=== PATIENT | female | born 1980 | race Caucasian/White ===

== ENCOUNTER 2017-06-04 22:43 | Emergency (ER) | payer OTHER ==
[2017-06-04 22:56] VITALS: BP 110/60; PULSE 74; TEMP 98.7; BMI 33.8
[2017-06-04 23:03] LABS: BASOPHIL 1.1 % (0-2.0); EOSINOPHIL 1.7 % (0-4.5); MCH 29.8 pg (25.7-33.7); MEAN CELL VOLUME 85.3 fl (80-96); MEAN PLT VOLUME 7.7 fl (7.5-11.1); NEUTROPHILS 78.8 % (42.8-82.8); PLATELET COUNT 385 K/MM3 (134-434); RDW 12.1 % (11.6-15.6); WHITE BLOOD COUNT 14.1 K/mm3 (4.0-10.8)
[2017-06-04 23:15] LABS: ALBUMIN 4.7 g/dl (3.5-5.0); ALK PHOS 85 U/L (32-92); ANION GAP 7 (8-16); BILIRUBIN,TOTAL 0.4 mg/dl (0.2-1.0); CALCIUM 9.2 mg/dl (8.4-10.2); CO2 30 mmol/L (22-28); CREATININE 0.9 mg/dl (0.6-1.3); GLUCOSE,RANDOM 90 mg/dl (74-106); SGOT/AST 22 U/L (10-42); SGPT/ALT 30 U/L (10-40); TOT PROT 7.5 g/dl (6.4-8.3)
--- NOTE | 2017-06-04 23:35 | PDOC ---
History of Present Illness - General Chief Complaint: Wound Stated Complaint: FEVER YESTERDAY, RT BREAST PAIN Time Seen by Provider: 06/04/17 22:47 - History of Present Illness Initial Comments: This 36-year-old woman with a history of breast/ovarian carcinoma (in remission ) and asthma presents with right breast pain and fever for the last day. Patient noted some discomfort in her right breast approximately 48 hours ago. Yesterday, pain continued and she noted fever which was progressive throughout the day (Tmax 103.9F). She took Motrin and her chronic pain medication ( oxycodone/acetaminophen) for fever and pain. Today, she has had no fever but pain persists. She has also noted some swelling in the right breast. Patient had mastectomies and breast implants placed in 2013. She has had no previous problems with infection related to the implants. No recent history of trauma to the area. No discharge or bleeding from the healed surgical incision. She has had no wounds/rash of the breasts or chest wall. No history of resistant organism infection or colonization. No previous history of cellulitis/abscess She denies nausea/vomiting/diarrhea, cough/upper respiratory symptoms, abdominal pain Past History - Past Medical History Allergies/Adverse Reactions: Allergies Allergy/AdvReac Type Severity Reaction Status Date / Time No Known Allergies Allergy Verified 07/09/14 15:52 Home Medications: Ambulatory Orders Epinephrine (Epi-Pen 0.3MG) [Epipen 0.3MG -] 0.3 mg IM ASDIR #2 pens 04/28/13 Gabapentin [Neurontin] 800 mg PO QID 07/09/14 Naproxen [Naprosyn -] 500 mg PO TID 07/09/14 Montelukast Na [Singulair -] 10 mg PO HS 06/04/17 Ondansetron HCl [Zofran] 4 mg PO TID PRN 06/04/17 Oxycodone HCl/Acetaminophen [Percocet 5-325 mg Tablet] 1 - 2 tab PO Q6H PRN 08/11 Clindamycin HCl 300 mg PO TID #21 capsule 06/05/17 Asthma: Yes Cancer: Yes (OVARIAN AND BREAST) Other medical history: HYPOTENSION - Surgical History Orthopedic Surgery: Yes (?tibial repair) - Immunization History Immunization Up to Date: Yes - Psycho/Social/Smoking Cessation Hx Anxiety: No Suicidal Ideation: No Smoking Status: No Smoking History: Never smoked Number of Cigarettes Smoked Daily: 0 Hx Alcohol Use: No Substance Use Type: None Review of Systems - Review of Systems Able to Perform ROS?: Yes Comments:: 12 point review of systems is negative except for what is noted in the history of present illness *Physical Exam - Vital Signs Last Vital Signs Temp Pulse Resp BP Pulse Ox 98.7 F 74 18 110/60 100 06/04/17 22:51 06/04/17 22:51 06/04/17 22:51 06/04/17 22:51 06/04/17 22:51 - Physical Exam Comments: GENERAL: Adult female, alert and oriented 3, in no acute distress Vital signs: Temperature 98.4F, heart rate 75/minute, BP 110/ 60, respiratory rate rate 18/minute, pulse ox 100% on room air HEAD: Normal with no signs of trauma. EYES: PERRLA, EOMI, sclera anicteric, conjunctiva clear. ENT: Ears normal, nares patent, oropharynx clear without exudates. Moist mucous membranes. NECK: Normal range of motion, supple without lymphadenopathy, JVD, or masses. CHEST WALL: Right breastfaint erythema/mild edema superior lateral quadrant(8 cm by 4 cm area of erythema) Mild tenderness of the inflamed area without fluctuance or masses Central incision well-healed without erythema/discharge No skin break/rash evident Chest wall exam otherwise normal LUNGS: Breath sounds equal, clear to auscultation bilaterally. No wheezes, and no crackles. HEART:Regular rate and rhythm, normal S1 and S2 without murmur, rub or gallop. ABDOMEN:.normal bowel sounds No guarding,tenderness or rebound.No masses No distention. EXTREMITIES: Normal range of motion, no edema. No clubbing or cyanosis. No erythema, or tenderness. NEUROLOGICAL: Cranial nerves II through XII grossly intact. Normal speech. No focal neurological deficits. MUSCULOSKELETAL: Back non-tender to palpation, no CVA tenderness ED Treatment Course - LABORATORY CBC & Chemistry Diagram: 06/04/17 22:40 06/04/17 22:40 - ADDITIONAL ORDERS Additional order review: Laboratory Results 06/04/17 22:40 Sodium 136 Potassium 4.0 Chloride 99 Carbon Dioxide 30 H Anion Gap 7 L BUN 18 Creatinine 0.9 Creat Clearance w eGFR > 60 Random Glucose 90 Calcium 9.2 Total Bilirubin 0.4 AST 22 ALT 30 Alkaline Phosphatase 85 Total Protein 7.5 Albumin 4.7 06/04/17 22:40 RBC 4.45 MCV 85.3 MCHC 35.0 RDW 12.1 MPV 7.7 Neutrophils % 78.8 Lymphocytes % 15.0 Monocytes % 3.4 L Eosinophils % 1.7 Basophils % 1.1 Medical Decision Making - Medical Decision Making 36-year-old woman with a history of breast/ovarian carcinoma with history of implant in the right breast presents with short history of right breast pain/ edema/erythema and fever. She is currently afebrile but pain persists in the right breast. No previous infectious complications of her breast implants. Exam as noted above CBC/chemistry profile reveals moderate elevation of white blood cell count (14, 400) with neutrophil predominance. No other significant abnormalities on laboratory evaluation except for mild prerenal azotemia. Results discussed with the patient. Because of the presence of foreign body in the setting of mild cellulitis of the right breast, patient will have a dose of IV vancomycin (1 g) here in the ER. Prescription for clindamycin 300 mg 3 times a day for one week sent to her pharmacy The patient was cautioned to monitor the inflammation/infection of the right breast closely. Because of the presence of the implant, she may need to return for IV antibiotic treatment. Patient states that she will be leaving the area for a few days in 48 hours. She has a general doctor that she will follow-up with on Thursday, June 10. She has not seen her plastic surgery doctor (at [facility]) in a few years. She asked for referral to plastic surgeon in the area and Dr. Sanchez's and Dr. Aguilera's referral information given to her. She should plan to follow up with plastic surgery as well as her general doctor within the next week *DC/Admit/Observation/Transfer Diagnosis at time of Disposition: Cellulitis of right breast - Discharge Dispostion Disposition: HOME Condition at time of disposition: Stable - Prescriptions Prescriptions: Clindamycin HCl 300 mg PO TID #21 capsule - Referrals Referrals: Carson Sanchez MD [Staff Physician] - 1 week - Patient Instructions Printed Discharge Instructions: DI for Cellulitis -- Adult Additional Instructions: clindamycin 300mg three times a day for one week Drink plenty of water Return to ER if you have worsening pain/redness/swelling of right breast or persistent fever Follow-up with your general doctor next week as discussed Followup with Plastic surgeon within 1 week
[2017-06-05] MEDS ORDERED: VANCOMYCIN 1,000 MG in DEXTROSE 5%-WATER - 250 ML IVPB ONE (00:23)
[2017-06-05] MEDS ORDERED: VANCOMYCIN 1,000 MG VIAL (RESTRICTED TO ID ONLY) ONE (00:26)
== END 2017-06-05 02:02 | disposition home or self-care (01) ==
LOC: FER 22:43
DX: N61.0 Mastitis without abscess (principal)
CPT/HCPCS: 36415; 80053; 85025; 99282-25

== ENCOUNTER 2019-06-08 09:57 | Emergency (ER) | payer OTHER ==
[2019-06-08 10:06] VITALS: BP 110/74; PULSE 86; TEMP 98.4; BMI 27.4
--- NOTE | 2019-06-08 10:12 | PDOC ---
History of Present Illness - General Chief Complaint: Bite Stated Complaint: DOG BITE Time Seen by Provider: 06/08/19 10:10 - History of Present Illness Initial Comments: 06/08/19 11:19 Chief complaint: Dog bite History of present illness: Patient was bitten by a neighbors dog on the right hand immediately CROSSING TENDER. She was walking her own dogs and was feeding both her dog and a neighbor's dog. She has known the neighbor's dog for quite a while and although the dog is unpredictable, he is known to be healthy. Review of systems: Complains of numbness and tingling of the index finger, and volar aspect of the forearm. Denies limited range of motion or weakness. 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 Bilateral mastectomies and complete hysterectomy. Postmastectomy pain maintained on narcotics. Social/family history reviewed and noncontributory except for the history of multiple cancers of the reproductive tract Physical exam: Alert and oriented well-developed well-nourished mild distress due to pain in the right hand at the site of bites. Cooperative Afebrile, vital signs normal Physical exam is normal except for the right hand, which shows multiple puncture wounds, most notably the volar aspect of the palm at the base of the index finger, the dorsal aspect of the hand over the distal second metacarpal, and the lateral wrist. There are no foreign bodies palpable or visible. There is no bleeding, but there is edema, which is mild. Sensation is intact to all 5 fingertips, although the patient does note some tingling in the index fingertip. Flexor and extensor function is intact against resistance to all 5 digits. Capillary refill is intact to all 5 digits. Pulses are full. Impression: Multiple puncture wounds of the right hand due to dog bite Plan: X-ray, wound care and antibiotics, tetanus update, and close follow-up by hand specialist. Past History - Past Medical History Allergies/Adverse Reactions: Allergies Allergy/AdvReac Type Severity Reaction Status Date / Time bee venom protein (honey bee) Allergy Verified 06/08/19 10:56 BEE Allergy Uncoded 06/08/19 09:58 Home Medications: Ambulatory Orders Gabapentin [Neurontin] 800 mg PO QID 07/09/14 Naproxen [Naprosyn -] 500 mg PO BID 07/09/14 Montelukast Na [Singulair -] 10 mg PO HS 06/04/17 Albuterol Sulfate Inhaler - [Ventolin HFA Inhaler -] 1 - 2 inh PO Q4H 06/08/19 Amox-Tr/K Cl [Augmentin 875-125mg Tablet -] 1 tab PO BID #14 tablet 06/08/19 Budesonide/Formeterol Fumarate [SYMBICORT 160/4.5mcg -] 1 inh PO DAILY 06/08/19 Naloxegol Oxalate [Movantik] 25 mg PO DAILY 06/08/19 Oxycodone HCl/Acetaminophen [Percocet 5-325 mg Tablet] 1 tab PO Q6H 06/08/19 Asthma: Yes Cancer: Yes (OVARIAN AND BREAST) COPD: No Other medical history: OVARIAN CANCER, BREAST CANCER - Surgical History Orthopedic Surgery: Yes (?tibial repair) - Immunization History Immunization Up to Date: Yes - Suicide/Smoking/Psychosocial Hx Smoking Status: No Smoking History: Never smoked Number of Cigarettes Smoked Daily: 0 Hx Alcohol Use: No Drug/Substance Use Hx: No Substance Use Type: None *Physical Exam - Vital Signs Last Vital Signs Temp Pulse Resp BP Pulse Ox 98.4 F 86 18 110/74 100 06/08/19 09:57 06/08/19 09:57 06/08/19 09:57 06/08/19 09:57 06/08/19 09:57 Medical Decision Making - Medical Decision Making 06/08/19 11:24 Wounds were thoroughly scrubbed and dressed with bacitracin. Wrapped with 4 x 4 and Jayashree. Instructions for rest and elevation. Referral to hand specialist for recheck in 2 days, sooner if there is increased pain or other sign of significant infection. Patient understands the potential seriousness of hand infections, which frequently develop after dog bite, and agrees to close follow-up as directed. *DC/Admit/Observation/Transfer Diagnosis at time of Disposition: Dog bite of right hand Qualifiers: Encounter type: initial encounter Qualified Code(s): S61.451A - Open bite of right hand, initial encounter - Discharge Dispostion Disposition: HOME Condition at time of disposition: Stable Decision to Admit order: No - Prescriptions Prescriptions: Amox-Tr/K Cl [Augmentin 875-125mg Tablet -] 1 tab PO BID #14 tablet - Referrals Referrals: Favian Edgar MD [Staff Physician] - 2 Days - Patient Instructions Printed Discharge Instructions: How to Care for a Domestic Animal Bite Additional Instructions: Absolute rest and elevation of the right arm and hand for at least 2 days. Continue antibiotics as directed. See hand specialist in 2 days for further evaluation and treatment. Dog bites of the hand can easily get infected and cause extensive damage if not cared for properly. - Post Discharge Activity
[2019-06-08] MEDS ORDERED: AMOX TR/POT CLAV 875MG/125MG TABLETS (FP) PO ONE (10:26)
[2019-06-08] MEDS ORDERED: DIPHTH,PERTUSS(ACELL),TET 0.5 ML DISP.SYRIN IM ONE ×2 (10:52→10:55)
[2019-06-08] MEDS ORDERED: AMOX TR/POT CLAV 875MG/125MG TABLETS (FP) ONE (10:55)
== END 2019-06-08 11:06 | disposition home or self-care (01) ==
LOC: FER 09:57
PROC: 3E0234Z Introduction of Serum, Toxoid and Vaccine into Muscle, Percutaneous Approach (ICD-10-PCS; principal; 2019-06-08)
DX: S61.451A Open bite of right hand, initial encounter (principal); W54.0XXA Bitten by dog, initial encounter; Y93.89 Activity, other specified; Y92.89 Other specified places as the place of occurrence of the external cause
CPT/HCPCS: 73130-TC-RT-FY; 90715; 99282-25

== ENCOUNTER 2020-10-26 18:25 | Emergency (ER) | payer OTHER ==
[2020-10-26 18:38] VITALS: BP 120/72; TEMP 98.8; BMI 29.2
[2020-10-26] MEDS ORDERED: morphine CARPU-JECT 4 MG/1 ML DISP.SYRIN IVPUSH ONE ×2 (18:41→20:01)
[2020-10-26] MEDS ORDERED: LACTATED RINGERS SOLUTION 1000 ML INFUS.BAG IV ONE (18:44)
[2020-10-26] MEDS ORDERED: morphine SULFATE 4 MG/ML VIAL ONE ×2 (18:52→20:01)
[2020-10-26 19:27] LABS: HEMATOCRIT 37.5 % (32.4-45.2); HEMOGLOBIN 12.6 GM/dl (10.7-15.3); MCH 30.5 pg (25.7-33.7); MCHC 33.6 g/dl (32.0-36.0); MEAN CELL VOLUME 90.7 fl (80-96); MEAN PLT VOLUME 7.4 fl (7.5-11.1); PLATELET COUNT 481 K/MM3 (134-434); RBC 4.14 M/mm3 (3.60-5.2); RDW 11.9 % (11.6-15.6)
[2020-10-26 19:35] LABS: ALBUMIN 4.4 g/dl (3.4-5.0); BILIRUBIN,TOTAL 0.7 mg/dl (0.2-1); CALCIUM 9.1 mg/dl (8.5-10); CREATININE 0.9 mg/dl (0.55-1.3); TOT PROT 6.5 g/dl (6.4-8.2)
[2020-10-26 19:36] LABS: ACTIVATED PTT 30.9 SECONDS (25.2-36.5)
[2020-10-26 19:40] LABS: INR 1.18 (0.82-1.09); PROTHROMBIN TIME (PATIENT) 13.1 SEC (10.2-13.0)
[2020-10-26 20:02] LABS: PLATELET ESTIMATE SLT INCREASE
[2020-10-26] MEDS ORDERED: ONDANSETRON 4 MG/2 ML VIAL IVPB ONE (20:29)
[2020-10-26] MEDS ORDERED: ONDANSETRON 4 MG/2 ML VIAL ONE (20:30)
[2020-10-26 20:45] VITALS: PULSE 64
== END 2020-10-26 21:14 | disposition home or self-care (01) ==
LOC: FER 18:25
DX: N30.00 Acute cystitis without hematuria (principal)
CPT/HCPCS: 36415; 74177-TC; 80053; 81003; 85025; 85610; 85730; 86850; 86900; 86901; 93005; 99283-25; Q9967

== ENCOUNTER → 2023-02-18 | Day surgery (SDC) | payer BC ==
[2023-02-18 10:05] VITALS: BMI 22.6
[2023-02-18 12:21] VITALS: TEMP 97
[2023-02-18 12:45] VITALS: RESP 15
[2023-02-18 13:36] VITALS: BP 103/65; PULSE 61
== END | disposition home or self-care (01) ==
LOC: JASU-ENDO 04:20
PROVIDERS: ATTEND Student in an Organized Health Care Education/Training Program
PROC: 0DB98ZX Excision of Duodenum, Via Natural or Artificial Opening Endoscopic, Diagnostic (ICD-10-PCS; 2023-02-18)
PROC: 0DB78ZX Excision of Stomach, Pylorus, Via Natural or Artificial Opening Endoscopic, Diagnostic (ICD-10-PCS; 2023-02-18)
PROC: 0DB68ZX Excision of Stomach, Via Natural or Artificial Opening Endoscopic, Diagnostic (ICD-10-PCS; 2023-02-18)
PROC: 0DJD8ZZ Inspection of Lower Intestinal Tract, Via Natural or Artificial Opening Endoscopic (ICD-10-PCS; principal; 2023-02-18 10:30)
DX: D64.9 Anemia, unspecified (principal); K29.50 Unspecified chronic gastritis without bleeding
CPT/HCPCS: 88305-TC; 88342-TC

== ENCOUNTER 2023-06-09 15:20 | Emergency (ER) | payer BC ==
[2023-06-09] MEDS ORDERED: SODIUM CHLORIDE 0.9% 500 ML INFUS.BAG IV ONE (15:40)
[2023-06-09] MEDS ORDERED: ONDANSETRON 4 MG/2 ML VIAL IVPUSH ONE (15:40)
[2023-06-09] MEDS ORDERED: morphine CARPU-JECT 4 MG/1 ML DISP.SYRIN IVPUSH ONE (15:40)
[2023-06-09] MEDS ORDERED: FAMOTIDINE 20 MG/50 ML IVPB 20 MG/50 ML MG IVPB ONE ×2 (15:40→16:06)
[2023-06-09] MEDS ORDERED: morphine SULFATE 4 MG/ML VIAL ONE (16:06)
[2023-06-09] MEDS ORDERED: ONDANSETRON 4 MG/2 ML VIAL ONE (16:06)
[2023-06-09 16:15] LABS: HEMATOCRIT 33.1 % (32.4-45.2); HEMOGLOBIN 10.8 G/dL (10.7-15.3); MCH 27.4 pg (25.7-33.7); MCHC 32.7 g/dl (32.0-36.0); MEAN CELL VOLUME 83.5 fl (80-96); MEAN PLT VOLUME 6.6 fl (7.5-11.1); PLATELET COUNT 470.6 10^3/uL (134-434); RBC 3.96 10^6/uL (3.60-5.2); WHITE BLOOD COUNT 9.3 10^3/uL (4.0-10.8)
[2023-06-09 16:18] VITALS: TEMP 97.8; BMI 21.9
[2023-06-09 16:29] LABS: ALBUMIN 3.5 g/dl (3.4-5.0); BILIRUBIN,TOTAL 0.1 mg/dl (0.2-1); BLOOD UREA NITROGEN 12.8 mg/dl (7-18); CALCIUM 8.6 mg/dl (8.5-10.1); CREATININE 0.8 mg/dl (0.6-1.3); POTASSIUM 3.9 mmol/L (3.5-5.1); SGOT/AST 9.7 U/L (15-37); SGPT/ALT 8.5 U/L (7-52); TOT PROT 5.4 g/dl (6.4-8.2)
[2023-06-09] MEDS ORDERED: ACETAMINOPHEN 325 MG TABLET (FP) PO ONE (17:05)
[2023-06-09] MEDS ORDERED: ONDANSETRON *ODT* 4 MG TABLET SL ONE (17:05)
[2023-06-09] MEDS ORDERED: ACETAMINOPHEN 1000 MG/100 ML BAG IVPB ONE (17:14)
[2023-06-09] MEDS ORDERED: ACETAMINOPHEN INJECTION 100 ML IVPB ONE (17:14)
[2023-06-09 17:21] LABS: PLATELET ESTIMATE ADEQUATE
[2023-06-09] MEDS ORDERED: KETOROLAC TROMETHAMINE 30 MG/1 ML VIAL IVPUSH ONE (19:38)
[2023-06-09] MEDS ORDERED: METOCLOPRAMIDE HCL 10 MG TABLET (FP) PO ONE (19:39)
[2023-06-09] MEDS ORDERED: KETOROLAC TROMETHAMINE 30 MG/1 ML VIAL ONE (19:40)
[2023-06-09] MEDS ORDERED: METOCLOPRAMIDE HCL INJECTION 10 MG/2 ML VIAL ONE (19:40)
[2023-06-09] MEDS ORDERED: METOCLOPRAMIDE HCL INJECTION 10 MG/2 ML VIAL IVPUSH ONE (19:52)
[2023-06-09 20:20] VITALS: BP 101/66; PULSE 68; RESP 16
== END 2023-06-09 20:51 | disposition home or self-care (01) ==
LOC: FER 15:20
PROC: 3E033GC Introduction of Other Therapeutic Substance into Peripheral Vein, Percutaneous Approach (ICD-10-PCS; principal; 2023-06-09)
PROC: 3E033GC Introduction of Other Therapeutic Substance into Peripheral Vein, Percutaneous Approach (ICD-10-PCS; 2023-06-09)
PROC: 3E033GC Introduction of Other Therapeutic Substance into Peripheral Vein, Percutaneous Approach (ICD-10-PCS; 2023-06-09)
PROC: 3E033GC Introduction of Other Therapeutic Substance into Peripheral Vein, Percutaneous Approach (ICD-10-PCS; 2023-06-09)
PROC: 3E0333Z Introduction of Anti-inflammatory into Peripheral Vein, Percutaneous Approach (ICD-10-PCS; 2023-06-09)
PROC: 3E033NZ Introduction of Analgesics, Hypnotics, Sedatives into Peripheral Vein, Percutaneous Approach (ICD-10-PCS; 2023-06-09)
DX: R10.12 Left upper quadrant pain (principal); R11.0 Nausea; D75.839 Thrombocytosis, unspecified
CPT/HCPCS: 36415; 74177-TC; 80053; 81003; 83690; 85027; 87086; 99285-25; Q0162; Q9967

== ENCOUNTER 2023-06-15 15:48 | Observation (INO) | payer BC ==
[2023-06-15] MEDS ORDERED: LACTATED RINGERS SOLUTION 1000 ML INFUS.BAG IV ONE ×2 (16:00→17:58)
[2023-06-15] MEDS ORDERED: MAG HYDROX/AL HYDROX/SIMETH -MYLANTA- ORAL SUSPENSION PO ONE (16:00)
[2023-06-15] MEDS ORDERED: SUCRALFATE 1 GM TABLET (FP) PO ONE (16:00)
[2023-06-15] MEDS ORDERED: ONDANSETRON 4 MG/2 ML VIAL IVPUSH ONE (16:00)
[2023-06-15] MEDS ORDERED: ACETAMINOPHEN 1000 MG/100 ML BAG IVPB ONE (16:00)
[2023-06-15] MEDS ORDERED: FAMOTIDINE 20 MG/50 ML IVPB 20 MG/50 ML MG IVPB ONE ×2 (16:00→16:26)
[2023-06-15] MEDS ORDERED: MAG HYDROX/AL HYDROX/SIMETH 30 ML UNIT-DOSE CUP ONE (16:26)
[2023-06-15] MEDS ORDERED: ACETAMINOPHEN INJECTION 100 ML IVPB ONE (16:26)
[2023-06-15] MEDS ORDERED: ONDANSETRON 4 MG/2 ML VIAL ONE (16:26)
[2023-06-15] MEDS ORDERED: SUCRALFATE 1 GM/10 ML UNIT DOSE CUPS ONE (16:27)
[2023-06-15 16:32] LABS: MCH 26.8 pg (25.7-33.7); MCHC 31.6 g/dl (32.0-36.0); MEAN CELL VOLUME 84.8 fl (80-96); MEAN PLT VOLUME 6.5 fl (7.5-11.1); PLATELET COUNT 595.3 10^3/uL (134-434); RBC 4.48 10^6/uL (3.60-5.2); RDW 18.7 % (11.6-15.6)
[2023-06-15 16:43] LABS: ALBUMIN 3.8 g/dl (3.4-5.0); BLOOD UREA NITROGEN 12.2 mg/dl (7-18); CALCIUM 9.3 mg/dl (8.5-10.1); CREATININE 0.7 mg/dl (0.6-1.3); MAGNESIUM 1.9 mg/dL (1.8-2.4); PHOSPHOROUS 4.5 (2.5-4.9); POTASSIUM 3.8 mmol/L (3.5-5.1); SGOT/AST 10.1 U/L (15-37); SGPT/ALT 10.2 U/L (7-52); TOT PROT 5.9 g/dl (6.4-8.2)
[2023-06-15 17:28] LABS: PLATELET ESTIMATE SLT INCREASE
[2023-06-15] MEDS ORDERED: METOCLOPRAMIDE HCL INJECTION 10 MG/2 ML VIAL IVPB ONE (18:21)
[2023-06-15] MEDS ORDERED: METOCLOPRAMIDE HCL INJECTION 10 MG/2 ML VIAL ONE (18:24)
[2023-06-15] MEDS ORDERED: KETOROLAC TROMETHAMINE 15 MG/ML VIAL IVPUSH ONE (18:38)
[2023-06-15] MEDS ORDERED: KETOROLAC TROMETHAMINE 15 MG/ML VIAL ONE (18:45)
[2023-06-15] MEDS: DEXTROSE 5%-0.45% SALINE 1,000 ML IV SCH (19:31)
[2023-06-15] MEDS ORDERED: TRIMETHOBENZAMIDE HCL 200MG/2ML INJ IM PRN (19:37)
[2023-06-15] MEDS ORDERED: DOCUSATE SODIUM 100 MG CAPSULE (FP) PO PRN (19:37)
[2023-06-15 19:53] LABS: BILIRUBIN,TOTAL 0.2 mg/dL (0.2-1)
[2023-06-15] MEDS ORDERED: MELATONIN 5 MG TABLETS PO PRN (21:19)
[2023-06-15] MEDS ORDERED: SIMETHICONE 125 MG PO SCH (23:45)
[2023-06-15] MEDS ORDERED: ALBUTEROL SO4 HFA INHALER IH PRN (23:59)
[2023-06-16] MEDS: ACETAMINOPHEN 1000 MG/100 ML BAG IVPB PRN ×4 (00:07→21:16)
[2023-06-16 00:16] VITALS: BMI 20.4
[2023-06-16] MEDS: METOCLOPRAMIDE HCL INJECTION 10 MG/2 ML VIAL IVPUSH SCH ×4 (00:49→17:02)
[2023-06-16] MEDS: DICYCLOMINE HCL 10 MG CAPSULE PO PRN (04:35)
[2023-06-16] MEDS: GABAPENTIN 400 MG CAPSULE PO SCH ×3 (06:23→21:11)
[2023-06-16] MEDS ORDERED: oxyCODONE HCL 5 MG TABLET PO PRN (07:32)
[2023-06-16] MEDS ORDERED: MAG HYDROX/AL HYDROX/SIMETH 30 ML UNIT-DOSE CUP PO PRN (07:34)
[2023-06-16 08:49] LABS: BLOOD UREA NITROGEN 10.8 mg/dl (7-18); CALCIUM 8.5 mg/dl (8.5-10.1); CREATININE 0.7 mg/dl (0.6-1.3); POTASSIUM 4.3 mmol/L (3.5-5.1)
[2023-06-16] MEDS: NAPROXEN 500 MG TABLET PO SCH ×2 (09:18→21:12)
[2023-06-16] MEDS: SENNOSIDES/DOCUSATE COMBO (SENNA PLUS) TABLET (UD) PO SCH (09:18)
[2023-06-16 09:21] LABS: HEMATOCRIT 32.7 % (32.4-45.2); HEMOGLOBIN 10.2 GM/dL (10.7-15.3); MCH 25.9 pg (25.7-33.7); MCHC 31.3 g/dl (32.0-36.0); MEAN PLT VOLUME 7.6 fl (7.5-11.1); PLATELET COUNT 479 10^3/uL (134-434); RBC 3.95 M/mm3 (3.60-5.2); RDW 19.4 % (11.6-15.6); WHITE BLOOD COUNT 9.3 K/mm3 (4.0-10.0)
[2023-06-16 09:57] LABS: ANISOCYTOSIS 0; HELMET CELLS 0; HOWELL-JOLLY BODIES 0; MACROCYTOSIS 0; OVALOCYTE 0; ROULEAU 0; SICKELED CELLS 0; TARGET CELLS 0; TEAR DROP CELLS 0; TOXIC GRANULATION 0
[2023-06-16] MEDS ORDERED: SUMATRIPTAN SUCCINATE 6 MG/0.5 ML VIAL SQ PRN (18:11)
[2023-06-16] MEDS: MONTELUKAST NA 10 MG TABLET PO SCH (21:12)
[2023-06-16] MEDS: DEXTROSE 5%-0.45% SALINE 1,000 ML IV SCH (21:13)
[2023-06-17] MEDS: DICYCLOMINE HCL 10 MG CAPSULE PO PRN (02:12)
[2023-06-17] MEDS: METOCLOPRAMIDE HCL INJECTION 10 MG/2 ML VIAL IVPUSH SCH ×4 (02:12→17:20)
[2023-06-17] MEDS: GABAPENTIN 400 MG CAPSULE PO SCH ×3 (06:05→21:09)
[2023-06-17] MEDS: SENNOSIDES/DOCUSATE COMBO (SENNA PLUS) TABLET (UD) PO SCH ×3 (06:08→21:09)
[2023-06-17] MEDS: ACETAMINOPHEN 1000 MG/100 ML BAG IVPB PRN ×3 (06:55→19:40)
[2023-06-17] MEDS ORDERED: LACTATED RINGERS SOLUTION 1,000 ML/1,000 ML INFUS.BAG IV SCH (07:15)
[2023-06-17] MEDS ORDERED: SUMATRIPTAN SUCCINATE 6 MG/0.5 ML VIAL SQ ONE (08:03)
[2023-06-17 08:43] LABS: HEMATOCRIT 27.3 % (32.4-45.2); HEMOGLOBIN 8.5 G/dL (10.7-15.3); MCH 26.7 pg (25.7-33.7); MCHC 31.3 g/dl (32.0-36.0); MEAN CELL VOLUME 85.2 fl (80-96); PLATELET COUNT 356.3 10^3/uL (134-434); WHITE BLOOD COUNT 5.5 10^3/uL (4.0-10.8)
[2023-06-17 08:55] LABS: ALBUMIN 2.3 g/dl (3.4-5.0); ALK PHOS 51 U/L (45-117); ANION GAP 5 MMOL/L (8-16); BLOOD UREA NITROGEN 5.6 mg/dl (7-18); CALCIUM 6.4 mg/dl (8.5-10.1); CHLORIDE 95 mmol/L (98-107); CO2 22 mmol/L (21-32); CREATININE 0.7 mg/dl (0.6-1.3); GLUCOSE,RANDOM 601 mg/dl (74-106); MAGNESIUM 1.5 mg/dL (1.8-2.4); PHOSPHOROUS 2.84 (2.5-4.9); POTASSIUM 3.3 mmol/L (3.5-5.1); SGOT/AST 6.5 U/L (15-37); SODIUM 122 mmol/L (136-145); TOT PROT 3.5 g/dl (6.4-8.2)
[2023-06-17] MEDS: NAPROXEN 500 MG TABLET PO SCH ×2 (09:03→21:10)
[2023-06-17 11:17] LABS: BLOOD UREA NITROGEN 6.5 mg/dl (7-18); CALCIUM 8.3 mg/dl (8.5-10.1); CREATININE 0.7 mg/dl (0.6-1.3); POTASSIUM 3.7 mmol/L (3.5-5.1)
[2023-06-17 12:52] LABS: BILIRUBIN,TOTAL 0.4 mg/dL (0.2-1)
[2023-06-17 13:13] LABS: MAGNESIUM 1.5 mg/dL (1.8-2.4); PHOSPHOROUS 2.96 (2.5-4.9)
[2023-06-17] MEDS ORDERED: MAGNESIUM 2GM/50ML STERILE WATER IVPB IVPB ONE (15:00)
[2023-06-17] MEDS: MONTELUKAST NA 10 MG TABLET PO SCH (21:09)
[2023-06-17] MEDS ORDERED: AMITRIPTYLINE HCL 10 MG TABLET PO SCH (22:00)
[2023-06-18] MEDS: DICYCLOMINE HCL 10 MG CAPSULE PO PRN (01:48)
[2023-06-18 02:04] VITALS: RESP 18
[2023-06-18] MEDS: GABAPENTIN 400 MG CAPSULE PO SCH ×2 (06:15→13:32)
[2023-06-18] MEDS: METOCLOPRAMIDE HCL INJECTION 10 MG/2 ML VIAL IVPUSH SCH ×3 (06:15→13:32)
[2023-06-18] MEDS: ACETAMINOPHEN 1000 MG/100 ML BAG IVPB PRN (06:15)
[2023-06-18 08:18] LABS: HEMATOCRIT 31.8 % (32.4-45.2); MCH 26.6 pg (25.7-33.7); MCHC 31.3 g/dl (32.0-36.0); MEAN CELL VOLUME 84.9 fl (80-96); MEAN PLT VOLUME 6.9 fl (7.5-11.1); PLATELET COUNT 392.8 10^3/uL (134-434); RBC 3.74 10^6/uL (3.60-5.2); RDW 18.2 % (11.6-15.6); WHITE BLOOD COUNT 7.4 10^3/uL (4.0-10.8)
[2023-06-18] MEDS ORDERED: ACETAMINOPHEN 1000 MG/100 ML BAG IVPB SCH (08:45)
[2023-06-18 09:01] LABS: BLOOD UREA NITROGEN 9.4 mg/dl (7-18); CALCIUM 7.9 mg/dl (8.5-10.1); CREATININE 0.7 mg/dl (0.6-1.3); PHOSPHOROUS 3.44 (2.5-4.9); POTASSIUM 3.6 mmol/L (3.5-5.1); SGOT/AST 9.3 U/L (15-37); SGPT/ALT 5.8 U/L (7-52); TOT PROT 4.5 g/dl (6.4-8.2)
[2023-06-18 09:33] VITALS: BP 106/63; PULSE 56; TEMP 98.6
[2023-06-18] MEDS: NAPROXEN 500 MG TABLET PO SCH (09:52)
[2023-06-18] MEDS: SENNOSIDES/DOCUSATE COMBO (SENNA PLUS) TABLET (UD) PO SCH (09:52)
[2023-06-18 15:23] LABS: BILIRUBIN,TOTAL 0.1 mg/dL (0.2-1)
== END 2023-06-18 14:00 | disposition home or self-care (01) ==
LOC: FER 15:48 → FM/S 18:35
PROVIDERS: ADMIT Internal Medicine; ATTEND Internal Medicine
PROC: 3E033NZ Introduction of Analgesics, Hypnotics, Sedatives into Peripheral Vein, Percutaneous Approach (ICD-10-PCS; principal; 2023-06-15)
PROC: 3E0337Z Introduction of Electrolytic and Water Balance Substance into Peripheral Vein, Percutaneous Approach (ICD-10-PCS; 2023-06-15)
PROC: 3E033GC Introduction of Other Therapeutic Substance into Peripheral Vein, Percutaneous Approach (ICD-10-PCS; 2023-06-15)
PROC: 3E0333Z Introduction of Anti-inflammatory into Peripheral Vein, Percutaneous Approach (ICD-10-PCS; 2023-06-15)
PROC: 3E023GC Introduction of Other Therapeutic Substance into Muscle, Percutaneous Approach (ICD-10-PCS; 2023-06-15)
DX: R10.13 Epigastric pain (principal); E86.0 Dehydration; K31.84 Gastroparesis; G89.29 Other chronic pain; M54.9 Dorsalgia, unspecified; R11.2 Nausea with vomiting, unspecified; Z91.030 Bee allergy status; J45.909 Unspecified asthma, uncomplicated; D50.9 Iron deficiency anemia, unspecified; R11.10 Vomiting, unspecified; Z90.79 Acquired absence of other genital organ(s); Z90.10 Acquired absence of unspecified breast and nipple; K59.00 Constipation, unspecified; F11.20 Opioid dependence, uncomplicated
CPT/HCPCS: 0241U-QW; 36415; 71045-TC-FY; 74177-TC; 76705-TC; 80048; 80053; 81003; 82962; 83605; 83690; 83735; 84100; 84484; 85025; 85027; 93005; 96360; 96361; 96365; 96372; 96375; 96376; 99285-25; G0378; Q9967